=== PATIENT | female | born 1965 | race Two or more races ===

== ENCOUNTER 2025-01-16 10:22 | Emergency (ER) | payer OTHER ==
[~2025-01-16] VITALS: Ht 170.2 cm; Wt 96.2 kg
[2025-01-16] MEDS ORDERED: PROTONIX20 MG PO (11:01)
[2025-01-16] MEDS ORDERED: PEPCID AC10 MG PO (11:01)
[2025-01-16] MEDS ORDERED: FAMOTIDINE/PF 20 MG in 0.9 % SODIUM CHLORIDE 8 ML IV PUSH STA (11:14)
[2025-01-16] MEDS ORDERED: 0.9 % SODIUM CHLORIDE 1,000 ML IV SCH (11:15)
[2025-01-16] MEDS ORDERED: FAMOTIDINE/PF 20 MG/2 ML VIAL ONE (11:21)
[2025-01-16 11:58] LABS: BASO % 0.2 % (0.1-1.2); EOS # 0.03 (0.04-0.54); EOS % 0.2 % (0.7-7.0); HEMATOCRIT 36.1 % (34.1-44.9); HEMOGLOBIN 11.9 g/dL (11.2-15.7); LYMPH # 3.37 (1.18-3.74); LYMPH % 22.4 % (19.3-53.1); MONO # 0.93 (0.24-0.82); MONO % 6.2 % (4.7-12.5); NEUT % 70.5 % (34.0-71.1); PLATELET COUNT 382 K/uL (163-369); RED BLOOD COUNT 4.11 M/uL (3.93-5.22); RED CELL DISTRIBUTION WIDTH 13.2 % (11.6-14.4)
[2025-01-16 13:21] LABS: CALCIUM 9.2 mg/dL (8.5-10.1); CREATININE SERUM 1.14 mg/dL (0.55-1.02); GFR 48.95; POTASSIUM 3.45 mEq/L (3.5-5.1)
[2025-01-16 13:32] LABS: PH,URINE 5.5 (5.0-8.0); URINE APPEARANCE Clear; URINE BILIRRUBIN Negative (NEGATIVE); URINE BLOOD Moderate; URINE COLOR Yellow; URINE GLUCOSE Negative (NEGATIVE); URINE KETONE Negative (NEGATIVE); URINE LEUKOCYTE Negative; URINE NITRATE Negative; URINE PROTEIN 30 (NEGATIVE); URINE UROBILINOGEN 0.2 E.U./dl
[2025-01-16 13:36] LABS: URINE BACTERIA 58.7 uL (0.0-1933); URINE EPITHELIAL CELLS 16.3 uL (0.0-38.8); URINE RBC 23.4 uL (0.0-20.8); URINE WBC 10.1 uL (0.0-23.2)
[2025-01-16] MEDS ORDERED: PIPERACILLIN/TAZOBACTAM SODIUM 3.375 GM VIAL IV ONE ×2 (15:00→15:10)
== END 2025-01-16 16:09 | disposition home or self-care (01) ==
LOC: ER 10:22
PROVIDERS: Emergency Medicine
DX: R10.84 Generalized abdominal pain (principal)